=== PATIENT | female | born 1985 | race Caucasian/White ===

== ENCOUNTER → 2018-02-03 | Outpatient (CLI) | payer OTHER ==
--- NOTE | 2018-02-03 20:23 | MR ---
EXAMINATION TYPE: MR brain/cspine wo DATE OF EXAM: 02/03/2018 COMPARISON: NONE HISTORY: Headache and neck pain per order. Seizures with dizziness or hearing loss and headaches for over 15 years per patient. TECHNIQUE: Multiplanar, multisequence imaging of the cervical spine, brain, and brainstem are all per formed without IV contrast. FINDINGS: BRAIN: Diffusion weighted images demonstrate no evidence of a recent infarct or other diffusion abnormality. There is no extraaxial fluid collection or significant white matter signal abnormality. The ventricu lar system and cisternal spaces are normal in size and appearance. The brain volume is age appropria te. T2 coronal weighted images show hippocampal gyri appear symmetric and felt within normal limits. Midline structures demonstrate normal morphology. The craniocervical junction appears within normal limits. Normal vascular flow voids are present. The visualized sinuses are clear and the globes are i ntact. IMPRESSION: Unremarkable study. C-SPINE: FINDINGS: Sagittal images of the cervical spine show the craniocervical junction to appear within nor mal limits. The cervical and upper thoracic spinal cord is normal in course, caliber, and signal. V ertebral alignment is anatomic. The vertebral body and intravertebral disk heights are normal. No robb spicious posterior disc herniations are seen on sagittal images. The bone marrow signal intensity is within normal limits. Axial images show there is no significant focal disk disease, spinal canal stenosis, neural foraminal narrowing, or spinal cord compromise at any cervical level. Visualized thyroid gland is felt within normal limits. IMPRESSION: Negative MRI of the cervical spine, no significant abnormality is seen to account for alley margret's clinical symptoms.
== END ==
LOC: MERGE 14:42 → RADMRIMAIN 14:42
PROVIDERS: ATTEND Psychiatry & Neurology Pain Medicine
DX: R51 Headache (principal); M54.2 Cervicalgia
CPT/HCPCS: 70551; 72141

== ENCOUNTER 2018-04-01 23:25 | Emergency (ER) | payer OTHER ==
--- NOTE | 2018-04-01 23:30 | ED ---
Seizure HPI - General Stated Complaint: Seizure Time Seen by Provider: 04/01/18 23:27 Source: patient Mode of arrival: EMS Limitations: no limitations - History of Present Illness Initial Comments: This patient is a 32-year-old woman with known seizure disorder who is brought by ambulance after having a seizure tonight at work. The patient works as a toll taker at the bridge. Someone had reportedly approached the patient's toll dye then seen her having repetitive movements and then EMS was activated. The patient does complain of left shoulder pain, stating that she has previously had dislocations during seizure. She denies any other trauma rate she states that she is having a little bit of headache, but is otherwise feeling like she is back to her baseline. MD Complaint: seizure -: minutes(s) Description of Episode: loss of consciousness, tonic-clonic movement Witnessed: yes - by bystander Trauma: No Seizure History: known seizure disorder Place: work Associated Symptoms: denies other symptoms - Related Data Allergies Allergy/AdvReac Type Severity Reaction Status Date / Time No Known Allergies Allergy Verified 04/01/18 23:30 Review of Systems ROS Statement: Those systems with pertinent positive or pertinent negative responses have been documented in the HPI. ROS Other: All systems not noted in ROS Statement are negative. Constitutional: Denies: fever, chills, weakness Eyes: Denies: vision change Respiratory: Denies: cough, dyspnea Cardiovascular: Denies: chest pain, syncope Gastrointestinal: Denies: abdominal pain, vomiting Musculoskeletal: Reports: arthralgia (Left shoulder). Denies: back pain Skin: Denies: rash Neurological: Denies: headache, weakness, numbness, confusion General Exam General appearance: alert, in no apparent distress Head exam: Present: atraumatic, normocephalic Eye exam: Present: PERRL, EOMI. Absent: scleral icterus, nystagmus ENT exam: Present: normal oropharynx Neck exam: Present: normal inspection, full ROM Respiratory exam: Present: normal lung sounds bilaterally. Absent: respiratory distress, wheezes, rales, rhonchi, stridor, chest wall tenderness Cardiovascular Exam: Present: regular rate, normal rhythm, normal heart sounds. Absent: systolic murmur, diastolic murmur, rubs, gallop GI/Abdominal exam: Present: soft. Absent: distended, tenderness, guarding, rebound Back exam: Present: normal inspection. Absent: CVA tenderness (R), CVA tenderness (L) Neurological exam: Present: alert, oriented X3. Absent: motor sensory deficit Skin exam: Present: warm, dry, intact, normal color. Absent: rash Course Vital Signs 04/01/18 04/01/18 23:26 23:55 Temperature 98.5 F 98.6 F Pulse Rate 102 H 99 Respiratory 20 16 Rate Blood Pressure 121/79 116/80 O2 Sat by Pulse 97 98 Oximetry Medical Decision Making - Medical Decision Making Patient's 32-year-old woman with seizure disorder. She did have one uncomplicated seizure. She is back to her baseline. She receives her neurology care through the office of Dr. Gan, and has follow-up there for this coming week RT scheduled. Discussed with her that lost states she may not drive until cleared by neurology. She will return if new seizures occur or other symptoms. - Lab Data Result diagrams: 04/01/18 23:55 04/01/18 23:55 Lab Results 04/01/18 04/01/18 Range/Units 23:55 23:55 WBC 9.3 (3.8-10.6) k/uL RBC 4.79 (3.80-5.40) m/uL Hgb 14.4 (11.4-16.0) gm/dL Hct 42.7 (34.0-46.0) % MCV 89.1 (80.0-100.0) fL MCH 30.1 (25.0-35.0) pg MCHC 33.8 (31.0-37.0) g/dL RDW 12.6 (11.5-15.5) % Plt Count 248 (150-450) k/uL Neutrophils % 71 % Lymphocytes % 24 % Monocytes % 3 % Eosinophils % 0 % Basophils % 0 % Neutrophils # 6.6 (1.3-7.7) k/uL Lymphocytes # 2.2 (1.0-4.8) k/uL Monocytes # 0.3 (0-1.0) k/uL Eosinophils # 0.0 (0-0.7) k/uL Basophils # 0.0 (0-0.2) k/uL Sodium 139 (137-145) mmol/L Potassium 4.3 (3.5-5.1) mmol/L Chloride 106 (98-107) mmol/L Carbon Dioxide 22 (22-30) mmol/L Anion Gap 11 mmol/L BUN 14 (7-17) mg/dL Creatinine 0.82 (0.52-1.04) mg/dL Est GFR (CKD-EPI)AfAm >90 (>60 ml/min/1.73 sqM) Est GFR (CKD-EPI)NonAf >90 (>60 ml/min/1.73 sqM) Glucose 104 H (74-99) mg/dL Calcium 9.5 (8.4-10.2) mg/dL Total Bilirubin 0.3 (0.2-1.3) mg/dL AST 20 (14-36) U/L ALT 20 (9-52) U/L Alkaline Phosphatase 81 (38-126) U/L Total Protein 6.8 (6.3-8.2) g/dL Albumin 4.4 (3.5-5.0) g/dL - EKG Data -: EKG Interpreted by Vt EKG shows normal: sinus rhythm, axis (Normal), intervals (Normal), QRS complexes (Normal), ST-T waves (Normal) Rate: tachycardia (Rate 111 bpm) Disposition Clinical Impression: Generalized seizure Disposition: HOME SELF-CARE Condition: Good Instructions: Recurrent Seizures in Adults (ED) Is patient prescribed a controlled substance at d/c from ED?: No Referrals: Jessica Kulkarni MD [Primary Care Provider] - 1-2 days Lucy Gan MD [Medical Doctor] - 1-2 days
[2018-04-02 00:15] LABS: Basophils % (A) 0 %; Eosinophils % (A) 0 %; HCT 42.7 % (34.0-46.0); HGB 14.4 gm/dL (11.4-16.0); Lymphocytes # (A) 2.2 k/uL (1.0-4.8); Lymphocytes % (A) 24 %; MCH 30.1 pg (25.0-35.0); MCHC 33.8 g/dL (31.0-37.0); MCV 89.1 fL (80.0-100.0); Mean Platelet Volume 7.1; Monocytes # (A) 0.3 k/uL (0-1.0); Monocytes % (A) 3 %; Neutrophils # (A) 6.6 k/uL (1.3-7.7); Neutrophils % (A) 71 %; Platelet Count 248 k/uL (150-450); RBC 4.79 m/uL (3.80-5.40); RDW 12.6 % (11.5-15.5); WBC 9.3 k/uL (3.8-10.6)
--- NOTE | 2018-04-02 00:23 | XR ---
EXAMINATION TYPE: XR shoulder complete LT DATE OF EXAM: 04/02/2018 COMPARISON: NONE HISTORY: Shoulder pain TECHNIQUE: 3 views FINDINGS: I see no fracture nor dislocation. Joint spaces are normal. There are no pathologic calcifi cations. IMPRESSION: Negative left shoulder exam.
[2018-04-02 00:36] LABS: ALT 20 U/L (9-52); AST 20 U/L (14-36); Albumin 4.4 g/dL (3.5-5.0); Alkaline Phosphatase 81 U/L (38-126); Anion Gap 11 mmol/L; Blood Urea Nitrogen 14 mg/dL (7-17); Calcium 9.5 mg/dL (8.4-10.2); Carbon Dioxide 22 mmol/L (22-30); Chloride 106 mmol/L (98-107); Glucose 104 mg/dL (74-99); Potassium 4.3 mmol/L (3.5-5.1); Sodium 139 mmol/L (137-145); Total Bilirubin 0.3 mg/dL (0.2-1.3); Total Protein 6.8 g/dL (6.3-8.2)
[2018-04-02] MEDS ORDERED: KETOROLAC 30 MG/ML 1 ML VIAL IVP STA (00:48)
[2018-04-02 01:41] VITALS: BP 120/77; PULSE 85; RESP 18; TEMP 97.9
== END 2018-04-02 01:39 | disposition home or self-care (01) ==
LOC: EC 23:25
DX: G40.409 Other generalized epilepsy and epileptic syndromes, not intractable, without status epilepticus (principal); M25.512 Pain in left shoulder; R51 Headache
CPT/HCPCS: 36415; 93005; 80053; 80175; 85025; 73030; 99285; 96374; J1885

== ENCOUNTER 2018-04-27 20:07 | Emergency (ER) | payer OTHER ==
[2018-04-27 20:18] VITALS: RESP 16
[2018-04-27] MEDS ORDERED: LORazepam 2 MG/ML INJ IV STA (21:14)
--- NOTE | 2018-04-27 21:23 | ED ---
General Adult HPI - General Chief complaint: Neuro Symptoms/Deficit Stated complaint: Seizure Time Seen by Provider: 04/27/18 20:50 Source: patient, EMS, RN notes reviewed Mode of arrival: EMS Limitations: no limitations - History of Present Illness Initial comments: Patient is a pleasant 32-year-old female presenting to the emergency Department with complaints of reported seizure. Patient has known seizure disorder. Patient has had multiple previous seizures however has been doing well for the past several years. Last seizure was approximately 2 weeks ago. No recent illness. No recent change in medication. Patient feels fine at this point however admits to feeling somewhat fatigued and drowsy. Patient denies any significant injury. - Related Data Home Medications Medication Instructions Recorded Confirmed Cyclobenzaprine [Flexeril] 10 mg PO TID 04/27/18 04/27/18 Ethosuximide 250mg/5ml 125 mg PO BID 04/27/18 04/27/18 HYDROcodone/APAP 5-325MG [Meally 1 tab PO DIRECTED 04/27/18 04/27/18 5-325] Ibuprofen [Motrin] 800 mg PO TID 04/27/18 04/27/18 Meclizine [Antivert] 25 mg PO DIRECTED 04/27/18 04/27/18 Topiramate [Topamax] 50 mg PO BID 04/27/18 04/27/18 lamoTRIgine [LaMICtal] 200 mg PO DAILY 04/27/18 04/27/18 lamoTRIgine [LaMICtal] 300 mg PO HS 04/27/18 04/27/18 Allergies Allergy/AdvReac Type Severity Reaction Status Date / Time No Known Allergies Allergy Verified 04/27/18 20:47 Review of Systems ROS Statement: Those systems with pertinent positive or pertinent negative responses have been documented in the HPI. ROS Other: All systems not noted in ROS Statement are negative. Constitutional: Denies: fever Eyes: Denies: eye pain ENT: Denies: ear pain Respiratory: Denies: cough Cardiovascular: Denies: chest pain Endocrine: Reports: fatigue Gastrointestinal: Denies: abdominal pain Genitourinary: Denies: dysuria Musculoskeletal: Denies: back pain Skin: Denies: rash Neurological: Denies: headache, weakness Past Medical History Past Medical History: Seizure Disorder History of Any Multi-Drug Resistant Organisms: None Reported Additional Past Surgical History / Comment(s): left falopian tube removed Past Psychological History: No Psychological Hx Reported Smoking Status: Never smoker Past Alcohol Use History: Rare Past Drug Use History: None Reported General Exam Limitations: no limitations General appearance: alert, in no apparent distress Head exam: Present: atraumatic Eye exam: Present: normal appearance, PERRL, EOMI. Absent: nystagmus ENT exam: Present: normal oropharynx, other (Tongue abrasion) Neck exam: Present: normal inspection. Absent: tenderness Respiratory exam: Present: normal lung sounds bilaterally Cardiovascular Exam: Present: regular rate, normal rhythm GI/Abdominal exam: Present: soft. Absent: tenderness Extremities exam: Present: normal inspection, full ROM. Absent: tenderness Neurological exam: Present: alert, oriented X3, CN II-XII intact. Absent: motor sensory deficit Expanded Cranial nerves: EOM's Intact: Normal Sensory exam: Upper Extremity Light Touch: Normal, Lower Extremity Light Touch: Normal Motor strength exam: RUE: 5, LUE: 5, RLE: 5, LLE: 5 Eye Response: (4) open spontaneously Motor Response: (6) obeys commands Verbal Response: (5) oriented Psychiatric exam: Present: normal affect, normal mood Skin exam: Present: normal color Course Vital Signs 04/27/18 20:12 Temperature 98.6 F Pulse Rate 112 H Respiratory 16 Rate Blood Pressure 131/76 O2 Sat by Pulse 99 Oximetry - Reevaluation(s) Reevaluation #1: 04/27/18 21:[address] Gan, who patient sees on an outpatient basis. EKG Findings - EKG Comments: EKG Findings:: Sinus tachycardia 109. MN 144. QRS 82. QT 328. QTC 441. Normal axis. Normal QRS. No acute ST change. Medical Decision Making - Medical Decision Making Patient reevaluated and resting comfortably in bed. Patient states there is some shoulder discomfort still however refuses x-ray. Patient updated on results and plan. Patient was given an extra dose of her Topamax at this time. Patient is advised to call her neurologist in the morning. - Lab Data Result diagrams: 04/27/18 20:22 04/27/18 20:22 Lab Results 04/27/18 04/27/18 04/27/18 Range/Units 20:22 20:22 22:00 WBC 6.4 (3.8-10.6) k/uL RBC 4.93 (3.80-5.40) m/uL Hgb 14.2 (11.4-16.0) gm/dL Hct 44.0 (34.0-46.0) % MCV 89.3 (80.0-100.0) fL MCH 28.7 (25.0-35.0) pg MCHC 32.2 (31.0-37.0) g/dL RDW 12.5 (11.5-15.5) % Plt Count 227 (150-450) k/uL Neutrophils % 63 % Lymphocytes % 31 % Monocytes % 4 % Eosinophils % 0 % Basophils % 0 % Neutrophils # 4.0 (1.3-7.7) k/uL Lymphocytes # 2.0 (1.0-4.8) k/uL Monocytes # 0.2 (0-1.0) k/uL Eosinophils # 0.0 (0-0.7) k/uL Basophils # 0.0 (0-0.2) k/uL Sodium 138 (137-145) mmol/L Potassium 4.7 (3.5-5.1) mmol/L Chloride 104 (98-107) mmol/L Carbon Dioxide 18 L (22-30) mmol/L Anion Gap 16 mmol/L BUN 17 (7-17) mg/dL Creatinine 1.03 (0.52-1.04) mg/dL Est GFR (CKD-EPI)AfAm 84 (>60 ml/min/1.73 sqM) Est GFR (CKD-EPI)NonAf 73 (>60 ml/min/1.73 sqM) Glucose 104 H (74-99) mg/dL Calcium 9.9 (8.4-10.2) mg/dL Total Bilirubin 0.5 (0.2-1.3) mg/dL AST 27 (14-36) U/L ALT 26 (9-52) U/L Alkaline Phosphatase 68 (38-126) U/L Total Protein 7.1 (6.3-8.2) g/dL Albumin 4.6 (3.5-5.0) g/dL Urine Color Colorless Urine Appearance Clear (Clear) Urine pH 6.0 (5.0-8.0) Ur Specific [place] 1.004 (1.001-1.035) Urine Protein Negative (Negative) Urine Glucose (UA) Negative (Negative) Urine Ketones Negative (Negative) Urine Blood Negative (Negative) Urine Nitrite Negative (Negative) Urine Bilirubin Negative (Negative) Urine Urobilinogen <2.0 (<2.0) mg/dL Ur Leukocyte Esterase Negative (Negative) Urine Opiates Screen Detected H (NotDetected) Ur Oxycodone Screen Detected H (NotDetected) Urine Methadone Screen Not Detected (NotDetected) Ur Propoxyphene Screen Not Detected (NotDetected) Ur Barbiturates Screen Detected H (NotDetected) U Tricyclic Antidepress Not Detected (NotDetected) Ur Phencyclidine Scrn Not Detected (NotDetected) Ur Amphetamines Screen Not Detected (NotDetected) U Methamphetamines Scrn Not Detected (NotDetected) U Benzodiazepines Scrn Detected H (NotDetected) Urine Cocaine Screen Not Detected (NotDetected) U Marijuana (THC) Screen Not Detected (NotDetected) Serum Alcohol <10 mg/dL Disposition Clinical Impression: Generalized seizure Disposition: HOME SELF-CARE Condition: Stable Instructions (If sedation given, give patient instructions): Recurrent Seizures in Adults (ED) Additional Instructions: Please call your neurologist in the morning. Please do close follow-up with your neurologist in the next day or 2 for recheck. He is also follow-up with your primary care physician in the next day or 2 for recheck. Have them both follow-up with your Lamictal and Topamax levels that were drawn today. Return for recurrent seizures, confusion, fevers, worsening or change in symptoms or increased shoulder pain or other concerns. Is patient prescribed a controlled substance at d/c from ED?: No Referrals: Jessica Kulkarni MD [Primary Care Provider] - 1-2 days Time of Disposition: 22:55
[2018-04-27 21:37] LABS: Basophils % (A) 0 %; Eosinophils % (A) 0 %; HGB 14.2 gm/dL (11.4-16.0); Lymphocytes % (A) 31 %; MCH 28.7 pg (25.0-35.0); MCHC 32.2 g/dL (31.0-37.0); MCV 89.3 fL (80.0-100.0); Mean Platelet Volume 7.6; Monocytes # (A) 0.2 k/uL (0-1.0); Monocytes % (A) 4 %; Neutrophils % (A) 63 %; Platelet Count 227 k/uL (150-450); RBC 4.93 m/uL (3.80-5.40); RDW 12.5 % (11.5-15.5); WBC 6.4 k/uL (3.8-10.6)
[2018-04-27 22:04] LABS: Albumin 4.6 g/dL (3.5-5.0); Alcohol <10 mg/dL; Anion Gap 16 mmol/L; Blood Urea Nitrogen 17 mg/dL (7-17); Calcium 9.9 mg/dL (8.4-10.2); Carbon Dioxide 18 mmol/L (22-30); Chloride 104 mmol/L (98-107); Glucose 104 mg/dL (74-99); Sodium 138 mmol/L (137-145); Total Bilirubin 0.5 mg/dL (0.2-1.3); Total Protein 7.1 g/dL (6.3-8.2)
[2018-04-27 22:22] LABS: Potassium 4.7 mmol/L (3.5-5.1)
[2018-04-27 22:23] LABS: ALT 26 U/L (9-52); AST 27 U/L (14-36); Alkaline Phosphatase 68 U/L (38-126)
[2018-04-27 22:33] LABS: Amphetamine Screen,Urine Not Detected (NotDetected); Barbiturate Screen,Urine Detected (NotDetected); Benzodiazepines Screen,Urine Detected (NotDetected); Cocaine Screen,Urine Not Detected (NotDetected); Methadone Screen, Urine Not Detected (NotDetected); Opiate Screen,Urine Detected (NotDetected); Oxycodone Screen, Urine Detected (NotDetected); Phencyclidine Screen,Urine Not Detected (NotDetected); Tricyclic Antidepressant,Urine Not Detected (NotDetected); Urn Cannabinoid Scrn Not Detected (NotDetected)
[2018-04-27 22:34] LABS: Appearance,Urine Clear (Clear); Bilirubin,Urine Negative (Negative); Blood,Urine Negative (Negative); Color,Urine Colorless; Glucose,Urine (UA) Negative (Negative); Ketones,Urine Negative (Negative); Leukocyte Esterase,Urine Negative (Negative); Nitrite,Urine Negative (Negative); Protein,Urine Negative (Negative); Specific Gravity,Urine 1.004 (1.001-1.035); Urobilinogen,Urine <2.0 mg/dL (<2.0)
[2018-04-27] MEDS ORDERED: TOPIRAMATE 25 MG TAB PO STA (22:50)
[2018-04-27 23:10] VITALS: BP 116/84; PULSE 88; TEMP 98
== END 2018-04-27 23:15 | disposition home or self-care (01) ==
LOC: EC 20:07
DX: S00.512A Abrasion of oral cavity, initial encounter (principal); G40.909 Epilepsy, unspecified, not intractable, without status epilepticus; R29.898 Other symptoms and signs involving the musculoskeletal system; Z79.891 Long term (current) use of opiate analgesic; Z79.1 Long term (current) use of non-steroidal anti-inflammatories (NSAID); Z79.899 Other long term (current) drug therapy; Z53.29 Procedure and treatment not carried out because of patient's decision for other reasons
CPT/HCPCS: 36415; 93005; 80053; 80175; 85025; 81003; 80306; 99284; 96374; G0480; J2060; 80201; 80320

== ENCOUNTER → 2021-01-01 | Outpatient (CLI) | payer OTHER ==
[2021-01-01 17:47] LABS: Reticulocyte % 1.88 % (0.10-1.80)
[2021-01-01 17:48] LABS: Basophils # (A) 0.02 X 10*3/uL (0.00-0.10); Basophils % (A) 0.4 %; Eosinophils # (A) 0 X 10*3/uL (0.04-0.35); Eosinophils % (A) 0 %; HCT 40.8 % (37.2-46.3); HGB 13.8 g/dL (12.0-15.0); Lymphocytes # (A) 1.56 X 10*3/uL (0.90-5.00); Lymphocytes % (A) 32.8 %; MCH 30.5 pg (27.0-32.0); MCHC 33.8 g/dL (32.0-37.0); MCV 90.3 fL (80.0-97.0); Mean Platelet Volume 10.5 fL (9.5-12.2); Monocytes # (A) 0.32 X 10*3/uL (0.20-1.00); Monocytes % (A) 6.7 %; Neutrophils # (A) 2.83 X 10*3/uL (1.80-7.70); Neutrophils % (A) 59.7 %; Platelet Count 233 X 10*3/uL (140-440); RBC 4.52 X 10*6/uL (4.10-5.20); WBC 4.75 X 10*3/uL (4.50-10.00)
[2021-01-01 19:43] LABS: Follicle Stimulating Hormone 3.2 mIU/mL; Luteinizing Hormone 3.1 mIU/mL
[2021-01-01 20:40] LABS: Ferritin 47.4 ng/mL (10.0-291.0); Iron 87 ug/dL (50-170)
[2021-01-02 00:46] LABS: ALT 29 U/L (8-44); AST 18 U/L (13-35); African American GFR (CKD) 124.5 (60.0-200.0); Albumin 4.4 g/dL (3.8-4.9); Albumin/Globulin Ratio 2.57 (1.60-3.17); Alkaline Phosphatase 93 U/L (41-126); BUN/Creat Ratio 10.78 Ratio (12.00-20.00); Blood Urea Nitrogen 7.9 mg/dL (9.0-27.0); Calcium 9.4 mg/dL (8.7-10.3); Chloride 105 mmol/L (96-109); Globulin 1.7 g/dL (1.6-3.3); Glucose 93 mg/dL (70-110); Non-African American GFR(CKD) 107.5 (60.0-200.0); Potassium 4.3 mmol/L (3.5-5.5); Sodium 140 mmol/L (135-145); Total Protein 6.2 g/dL (6.2-8.2)
[2021-01-02 09:07] LABS: C Reactive Protein <0.30 mg/dL (0.00-0.80)
[2021-01-02 20:33] LABS: Gliadin AB IgA, Deaminated NEGATIVE (NEGATIVE); Gliadin AB IgA, Unit <0.2 U/mL
[2021-01-03 16:12] LABS: Growth Hormone, Human 0.2 ng/mL (<10)
== END | disposition home or self-care (01) ==
LOC: LABWHC1 10:11
PROVIDERS: ATTEND Psychiatry & Neurology Pain Medicine
DX: R19.7 Diarrhea, unspecified (principal); R53.82 Chronic fatigue, unspecified; R53.81 Other malaise
CPT/HCPCS: 36415; 80053; 82306; 82533; 82607; 82626; 82668; 82728; 83001; 83002; 83003; 83036; 83516; 83540; 83550; 84207; 84305; 84439; 84443; 84466; 84481; 85025; 85045; 86140

== ENCOUNTER 2023-04-21 08:58 | Emergency (ER) | payer OTHER ==
--- NOTE | 2023-04-21 09:07 | ED ---
General Adult HPI - General Stated complaint: Seizure Time Seen by Provider: 04/21/23 09:05 Source: patient, EMS, RN notes reviewed Mode of arrival: EMS Limitations: no limitations - History of Present Illness Initial comments: 37-year-old female presents emergency department via EMS from work after reported seizure. Patient has a long history of seizures is on a low-dose Lamic caleb and has stimulator. Patient sees [facility] here. Patient does have facial abrasions complains of mild headache and postictal feeling. Patient states she has breakthrough seizure approximate every 2 to 3 months but has had more frequent seizures recently. - Related Data Home Medications Medication Instructions Recorded Confirmed Acetaminophen with Codeine 1 tab PO TID PRN 04/21/23 04/21/23 [Tylenol #4 Tablet] Baclofen 5 - 10 mg PO BID PRN 04/21/23 04/21/23 Butalb/APAP/Caff 50-325-40Mg 1 tab PO TID PRN 04/21/23 04/21/23 [Fioricet 50-325-40] Dicyclomine [Bentyl] 10 mg PO HS 04/21/23 04/21/23 Loratadine [Claritin] 10 mg PO DAILY 04/21/23 04/21/23 Omeprazole [PriLOSEC] 20 mg PO DAILY PRN 04/21/23 04/21/23 Rizatriptan Benzoate [Maxalt] 10 mg PO BID PRN 04/21/23 04/21/23 Triamcinolone 0.5% Cream [Kenalog 1 applic TOPICAL BID 04/21/23 04/21/23 0.5% Cream] clonazePAM [KlonoPIN] 0.25 mg PO HS 04/21/23 04/21/23 lamoTRIgine [LaMICtal] 50 mg PO BID 04/21/23 04/21/23 Allergies Allergy/AdvReac Type Severity Reaction Status Date / Time No Known Allergies Allergy Verified 04/27/18 20:47 Review of Systems ROS Statement: Those systems with pertinent positive or pertinent negative responses have been documented in the HPI. ROS Other: All systems not noted in ROS Statement are negative. Past Medical History Past Medical History: Seizure Disorder History of Any Multi-Drug Resistant Organisms: None Reported Additional Past Surgical History / Comment(s): left falopian tube removed Past Psychological History: No Psychological Hx Reported Past Alcohol Use History: Rare Past Drug Use History: None Reported General Exam Limitations: no limitations General appearance: alert, in no apparent distress Head exam: Present: atraumatic, normocephalic. Absent: normal inspection (Frontal abrasion) Eye exam: Present: normal appearance, PERRL, EOMI. Absent: scleral icterus, conjunctival injection, periorbital swelling ENT exam: Present: mucous membranes moist. Absent: normal exam Neck exam: Present: normal inspection, full ROM. Absent: tenderness, meningismus, lymphadenopathy Respiratory exam: Present: normal lung sounds bilaterally. Absent: respiratory distress, wheezes, rales, rhonchi, stridor Cardiovascular Exam: Present: regular rate, normal rhythm, normal heart sounds. Absent: systolic murmur, diastolic murmur, rubs, gallop, clicks Neurological exam: Present: alert, oriented X3, CN II-XII intact, reflexes normal. Absent: motor sensory deficit Course Vital Signs 04/21/23 09:08 Temperature 98.4 F Pulse Rate 95 Respiratory 18 Rate Blood Pressure 125/88 O2 Sat by Pulse 99 Oximetry EKG Findings - EKG Comments: EKG Findings:: EKG performed at 9: 20 sinus rhythm with rate 98 FL 136 QRS 85 QT/QTc 325/381 - EKG Results: EKG: interpreted by STELLA Medical Decision Making - Medical Decision Making Was pt. sent in by a medical professional or institution (, PA, SANDSTONE INSPECTOR REPAIRER, urgent care, hospital, or [facility]...) When possible be specific @ -No Did you speak to anyone other than the patient for history (EMS, parent, family, police, friend...)? What history was obtained from this source @ -No Did you review nursing and triage notes (agree or disagree)? Why? @ -I reviewed and agree with nursing and triage notes Were old charts reviewed (outside hosp., previous admission, EMS record, old EKG, old radiological studies, urgent care reports/EKG's, [facility] records)? Report findings @ -Reviewed prior laboratory studies Differential Diagnosis (chest pain, altered mental status, abdominal pain women, abdominal pain men, vaginal bleeding, weakness, fever, dyspnea, syncope, headache, dizziness, GI bleed, back pain, seizure, CVA, palpatations, mental health, musculoskeletal)? @ -Differential Seizure: Recurrent seizure disorder, febrile seizure, alcohol withdrawal, stimulants, meningitis, encephalitis, intercranial hemorrhage, intracranial tumor, stroke, eclampsia, thyrotoxicosis, hypocalcemia, hyponatremia, hypernatremia, hypomagnesemia, psychogenic, this is not meant to be an all-inclusive list. EKG interpreted by me (3pts min.). @ -As above X-rays interpreted by me (1pt min.). @ -None done CT interpreted by me (1pt min.). @ -[CT brain, facial bones there is a depressed nasal bone fracture no acute intracranial hemorrhage no other acute fractures noted U/S interpreted by me (1pt. min.). @ -None done What testing was considered but not performed or refused? (CT, X-rays, U/S, labs)? Why? @ -None What meds were considered but not given or refused? Why? @ -None Did you discuss the management of the patient with other professionals (professionals i.e. , PA, SANDSTONE INSPECTOR REPAIRER, lab, RT, psych nurse, social sciences research scientist, buzzsaw operator helper, teacher, biological technical officer, gearcase assembler)? Give summary @ -No Was smoking cessation discussed for >3mins.? @ -No Was critical care preformed (if so, how long)? @ -No Were there social determinants of health that impacted care today? How? (Homelessness, low income, unemployed, alcoholism, drug addiction, transportation, low edu. Level, literacy, decrease access to med. care, [facility], rehab)? @ -No Was there de-escalation of care discussed even if they declined (Discuss DNR or withdrawal of care, Hospice)? DNR status @ -No What co-morbidities impacted this encounter? (DM, HTN, Smoking, COPD, CAD, Cancer, CVA, ARF, Chemo, Hep., AIDS, mental health diagnosis, sleep apnea, morbid obesity)? @ -[Seizure Was patient admitted / discharged? Hospital course, mention meds given and route, prescriptions, significant lab abnormalities, going to OR and other pertinent info. @ -Discharge patient feels improved at this time. Patient is not postictal she is at her current baseline. Patient had breakthrough seizures which she has had in the past. She does have a nasal bone fracture she will follow-up. She did have noted transaminitis in which this has been chronic for patient. She has no abdominal pain Undiagnosed new problem with uncertain prognosis? @ -[No Drug Therapy requiring intensive monitoring for toxicity (Heparin, Nitro, Insulin, Cardizem)? @ -No Were any procedures done? @ -No Diagnosis/symptom? @ -[Seizure Acute, or Chronic, or Acute on Chronic? @ -Acute Uncomplicated (without systemic symptoms) or Complicated (systemic symptoms)? @ -[complicated Side effects of treatment? @ -[No Exacerbation, Progression, or Severe Exacerbation? @ -No Poses a threat to life or bodily function? How? (Chest pain, USA, NH, pneumonia, PE, COPD, DKA, ARF, appy, cholecystitis, CVA, Diverticulitis, Homicidal, Suicidal, threat to staff... and all critical care pts) @ -No - Lab Data Result diagrams: 04/21/23 09:08 04/21/23 09:08 Lab Results 04/21/23 04/21/23 Range/Units 09:08 09:08 WBC 8.2 (3.8-10.6) k/uL RBC 4.88 (3.80-5.40) m/uL Hgb 14.8 (11.4-16.0) gm/dL Hct 43.1 (34.0-46.0) % MCV 88.3 (80.0-100.0) fL MCH 30.3 (25.0-35.0) pg MCHC 34.3 (31.0-37.0) g/dL RDW 12.7 (11.5-15.5) % Plt Count 201 (150-450) k/uL MPV 8.2 Neutrophils % 80 % Lymphocytes % 14 % Monocytes % 5 % Eosinophils % 0 % Basophils % 0 % Neutrophils # 6.6 (1.3-7.7) k/uL Lymphocytes # 1.1 (1.0-4.8) k/uL Monocytes # 0.4 (0-1.0) k/uL Eosinophils # 0.0 (0-0.7) k/uL Basophils # 0.0 (0-0.2) k/uL Sodium 138 (137-145) mmol/L Potassium 4.3 (3.5-5.1) mmol/L Chloride 108 H (98-107) mmol/L Carbon Dioxide 22 (22-30) mmol/L Anion Gap 8 mmol/L BUN 8 (7-17) mg/dL Creatinine 0.70 (0.52-1.04) mg/dL Est GFR (CKD-EPI)AfAm >90 (>60 ml/min/1.73 sqM) Est GFR (CKD-EPI)NonAf >90 (>60 ml/min/1.73 sqM) Glucose 94 (74-99) mg/dL Calcium 9.2 (8.4-10.2) mg/dL Magnesium 2.0 (1.6-2.3) mg/dL Total Bilirubin 0.8 (0.2-1.3) mg/dL AST 644 H (14-36) U/L ALT 278 H (4-34) U/L Alkaline Phosphatase 126 (38-126) U/L Total Protein 6.3 (6.3-8.2) g/dL Albumin 4.0 (3.5-5.0) g/dL Disposition Clinical Impression: Generalized seizure, Nasal bone fracture Disposition: HOME SELF-CARE Condition: Stable Instructions (If sedation given, give patient instructions): Recurrent Seizures in Adults (ED) Additional Instructions: Please return to the Emergency Department if symptoms worsen or any other concerns. Is patient prescribed a controlled substance at d/c from ED?: No Referrals: Jessica Kulkarni MD [Primary Care Provider] - 1-2 days Time of Disposition: 10:38
[2023-04-21] MEDS ORDERED: ONDANSETRON 4 MG/2 ML VIAL IVP STA (09:30)
[2023-04-21] MEDS ORDERED: MORPHINE SULFATE 4 MG/ML SYRINGE IVP STA (09:30)
[2023-04-21 10:14] LABS: Basophils % (A) 0 %; Eosinophils % (A) 0 %; HCT 43.1 % (34.0-46.0); HGB 14.8 gm/dL (11.4-16.0); Lymphocytes # (A) 1.1 k/uL (1.0-4.8); Lymphocytes % (A) 14 %; MCH 30.3 pg (25.0-35.0); MCHC 34.3 g/dL (31.0-37.0); MCV 88.3 fL (80.0-100.0); Mean Platelet Volume 8.2; Monocytes # (A) 0.4 k/uL (0-1.0); Monocytes % (A) 5 %; Neutrophils # (A) 6.6 k/uL (1.3-7.7); Neutrophils % (A) 80 %; Platelet Count 201 k/uL (150-450); RBC 4.88 m/uL (3.80-5.40); RDW 12.7 % (11.5-15.5); WBC 8.2 k/uL (3.8-10.6)
--- NOTE | 2023-04-21 10:19 | CT ---
EXAMINATION TYPE: CT brain wo con, CT facial bones wo con CT DLP: 1005 (accession [id number]), 300 (accession [id number]) mGycm, Automated exposure control for dos e reduction was used. DATE OF EXAM: 04/21/2023 10:08 AM COMPARISON: None. CLINICAL INDICATION:Female, 37 years old with history of seizure activity/trauma, fall TECHNIQUE: Brain: Multiple axial CT images of the brain were obtained without IV contrast. Facial bones; axial CT images of the facial bones were obtained without contrast and soft tissue and bone windows. Coronal and sagittal reformatted images were also reviewed. FINDINGS: Brain: Extra-axial spaces: No abnormal extra-axial fluid collections. Ventricular system: Within normal limits Cerebral parenchyma: No acute intraparenchymal hemorrhage or mass effect. The ocampo-white junction is well differentiated. Cerebellum: Unremarkable. Mass effect: No evidence of midline shift. Intracranial vasculature: unremarkable Calvarium: No depressed skull fracture. Visualized orbits: Orbital contents are intact. Facial Bones: Dental amalgam streak artifact which limits evaluation. Acute minimally depressed right nasal bone fracture with surrounding soft tissue swelling. There is a pproximately 1 mm of depression. Right forehead soft tissue contusion. The orbital contents are unrem arkable. The temporal-mandibular joints appear symmetric. The mastoid air cells are clear. Partial op acification of the right frontal sinus. Remaining paranasal sinuses are clear. Partial visualization of left neck catheter. IMPRESSION: 1. No acute intracranial process. 2. Acute minimally depressed right nasal bone fracture 3. Right forehead soft tissue contusion.
[2023-04-21 10:26] LABS: ALT 278 U/L (4-34); AST 644 U/L (14-36); African American GFR (CKD) >90 (>60 ml/min/1.73 sqM); Alkaline Phosphatase 126 U/L (38-126); Anion Gap 8 mmol/L; Blood Urea Nitrogen 8 mg/dL (7-17); Calcium 9.2 mg/dL (8.4-10.2); Carbon Dioxide 22 mmol/L (22-30); Chloride 108 mmol/L (98-107); Glucose 94 mg/dL (74-99); Non-African American GFR(CKD) >90 (>60 ml/min/1.73 sqM); Potassium 4.3 mmol/L (3.5-5.1); Sodium 138 mmol/L (137-145); Total Bilirubin 0.8 mg/dL (0.2-1.3); Total Protein 6.3 g/dL (6.3-8.2)
[2023-04-21 12:52] VITALS: BP 109/75; PULSE 86; RESP 16; TEMP 98.5
== END 2023-04-21 11:00 | disposition home or self-care (01) ==
LOC: EC 08:58
DX: S02.2XXA Fracture of nasal bones, initial encounter for closed fracture (principal); G40.409 Other generalized epilepsy and epileptic syndromes, not intractable, without status epilepticus; X58.XXXA Exposure to other specified factors, initial encounter
CPT/HCPCS: 36415; 93005; 80053; 80175; 83735; 85025; 70486; 70450; 99285; 96374; 96375; J2270; J2405